=== PATIENT | female | born 1985 | race Caucasian/White ===

== ENCOUNTER 2018-05-18 03:25 | Emergency (ER) | payer BC, MEDICAID ==
--- NOTE | 2018-05-18 03:37 | ED Physician Documentation ---
PD HPI URI - Stated complaint Stated Complaint: FEVER,COUGH - Chief complaint Chief Complaint: Resp - History obtained from History obtained from: Patient - History of Present Illness Timing - onset: How many weeks ago (1) Timing details: Gradual onset Associated symptoms: Fever (Tmax 101.7) Improves by: Nothing Similar symptoms before: Has not had sx before Recently seen: Not recently seen - Additional information Additional information: patient complains of nonproductive cough for one week, generalized body aches, generalized headache. Fevers began two days ago, Tmax 101.7. Also complains of mild sore throat. Review of Systems Constitutional: reports: Fever, Chills, Myalgias, Fatigue, Sweats Ears: denies: Ear pain Throat: reports: Sore throat Cardiac: reports: Reviewed and negative Respiratory: reports: Cough. denies: Dyspnea GI: reports: Reviewed and negative Neurologic: reports: Headache PD PAST MEDICAL HISTORY - Past Medical History Past Medical History: Yes Cardiovascular: None Respiratory: None Endocrine/Autoimmune: None GI: None : Kidney stones HEENT: None Psych: None Musculoskeletal: None Derm: None - Past Surgical History Past Surgical History: Yes Ortho: Arthroscopic surgery /[employer]: section - Present Medications Home Medications: Ambulatory Orders Medication Instructions Recorded Confirmed Pnv95/Ferrous Fumarate/FA 1 each PO DAILY 12/18/12 04/20/14 [ Tablet] Oseltamivir [Tamiflu] 75 mg PO BID #9 capsule 05/18/18 Topiramate [Topamax] 1 tab PO DAILY 05/18/18 05/18/18 guaiFENesin/CODEINE [Robitussin AC] 5 - 10 ml PO Q6H PRN #100 udc 05/18/18 - Allergies Allergies/Adverse Reactions: Allergies Allergy/AdvReac Type Severity Reaction Status Date / Time amoxicillin [Amoxicillin] AdvReac Intermediate abd pain Verified 05/18/18 03:31 - Social History Does the pt smoke?: No Smoking Status: Never smoker Does the pt drink ETOH?: No Does the pt have substance abuse?: No - Immunizations Immunizations are current?: Yes Immunizations: TDAP >10years/unknown - POLST Patient has POLST: No PD ED PE NORMAL - Vitals Vital signs reviewed: Yes - General General: Alert and oriented X 3, No acute distress, Well developed/nourished - HEENT HEENT: Moist mucous membranes, Pharynx benign - Neck Neck: Supple, no meningeal sign - Cardiac Cardiac: RRR, No murmur - Respiratory Respiratory: No respiratory distress, Clear bilaterally - Abdomen Abdomen: Soft, Non tender - Derm Derm: Normal color, Warm and dry Results - Vitals Vitals: Vital Signs - 24 hr 05/18/18 05/18/18 05/18/18 03:29 05:04 05:10 Temperature 37.4 C 37.3 C Heart Rate 130 H 119 H 116 H Respiratory 20 22 Rate Blood Pressure 111/71 119/75 O2 Saturation 96 95 Oxygen O2 Source Room air - Labs Labs: Microbiology 05/18/18 04:00 Group A Strep Throat Culture - Preliminary Throat CULTURE IN PROGRESS. RESULTS TO FOLLOW. Laboratory Tests 05/18/18 05/18/18 04:00 04:00 Influenza A (Rapid) POSITIVE H Influenza B (Rapid) Negative Group A Strep Rapid Negative - Rads (name of study) chest xray Radiology: Prelim report reviewed, See rad report PD MEDICAL DECISION MAKING - ED course Complexity details: reviewed results, re-evaluated patient, considered differential, d/w patient Departure - Departure Disposition: 01 Home, Self Care Clinical Impression: Influenza Condition: Good Instructions: ED Flu, Medication: Tamiflu (Oseltamivir) Prescriptions: guaiFENesin/CODEINE [Robitussin AC] 5 - 10 ml PO Q6H PRN #100 udc PRN Reason: Cough Oseltamivir [Tamiflu] 75 mg PO BID #9 capsule Discharge Date/Time: 05/18/18 05:11
--- NOTE | 2018-05-18 04:25 | XRAY Report ---
Reason: cough, dyspnea Procedure Date: 05/18/2018 Accession Number: [id number] / [id number] Procedure: XR - Chest 2 View X-Ray CPT Code: 13133 FULL RESULT: EXAM: CHEST RADIOGRAPHY EXAM DATE: 05/18/2018 04:18 AM. CLINICAL HISTORY: Cough, dyspnea. Fever. COMPARISON: 05/05/2010 10:47 AM. TECHNIQUE: 2 views. FINDINGS: Lungs/Pleura: No alveolar consolidation or pleural effusion seen. No pneumothorax. Mediastinum: Heart and mediastinal contours are unremarkable. Other: None. IMPRESSION: 1. No acute abnormality seen in the chest. RADIA
[2018-05-18] MEDS ORDERED: OSELTAMIVIR 75 MG CAPSULE PO STA (04:59)
[2018-05-18 05:04] VITALS: BP 119/75
== END 2018-05-18 05:11 | disposition home or self-care (01) ==
LOC: ED 03:25
DX: J11.1 Influenza due to unidentified influenza virus with other respiratory manifestations (principal)
CPT/HCPCS: 71046; 87070; 87275; 87276; 87430; 99283; A9270

== ENCOUNTER 2018-08-08 18:27 | Emergency (ER) | payer MEDICAID ==
[2018-08-08 18:34] VITALS: BP 142/87
--- NOTE | 2018-08-08 19:15 | XRAY Report ---
Reason: cough Procedure Date: 08/08/2018 Accession Number: [id number] / [id number] Procedure: XR - Chest 2 View X-Ray CPT Code: 73326 FULL RESULT: EXAM: CHEST RADIOGRAPHY EXAM DATE: 08/08/2018 06:53 PM. CLINICAL HISTORY: Cough. COMPARISON: CHEST 2 VIEW 05/18/2018 4:09 AM. TECHNIQUE: 2 views. FINDINGS: Lungs/Pleura: Mild interstitial prominence with peribronchial cuffing, new or increased since previous study. No localized infiltrate, consolidation, effusion, or pneumothorax. Mediastinum: Heart and mediastinal contours are unremarkable. Other: None. IMPRESSION: Interstitial prominence, most likely bronchitis. RADIA
--- NOTE | 2018-08-08 19:22 | ED Physician Documentation ---
PD HPI URI - Stated complaint Stated Complaint: COUGH - Chief complaint Chief Complaint: Resp - History obtained from History obtained from: Patient - History of Present Illness Timing - onset: How many weeks ago (1) Timing duration: Weeks (1) Timing details: Gradual onset Pain level max: 6 Pain level now: 5 Associated symptoms: Fever (subjective), Chills, Nasal congestion, Rhinorrhea, Productive cough (green). No: Sinus pain, Sore throat Contributing factors: No: Sick contact, Travel, Immunocompromised, Unimmunized, COPD / asthma Improves by: Rest Worsened by: Activity Recently seen: Not recently seen PD PAST MEDICAL HISTORY - Past Medical History Cardiovascular: None Respiratory: None Endocrine/Autoimmune: None GI: None : Kidney stones HEENT: None Psych: None Musculoskeletal: None Derm: None - Past Surgical History Past Surgical History: Yes Ortho: Arthroscopic surgery /[employer]: section - Present Medications Home Medications: Ambulatory Orders Medication Instructions Recorded Confirmed Topiramate [Topamax] 1 tab PO DAILY 05/18/18 05/18/18 guaiFENesin/CODEINE [Robitussin AC] 5 - 10 ml PO Q6H PRN #100 udc 05/18/18 Benzonatate [Tessalon Perle] 100 - 200 mg PO TID PRN #30 capsule 08/08/18 Cetirizine HCl/Pseudoephedrine 1 each PO BID PRN #30 tab.er.12h 08/08/18 [Zyrtec-D Tablet] - Allergies Allergies/Adverse Reactions: Allergies Allergy/AdvReac Type Severity Reaction Status Date / Time amoxicillin [Amoxicillin] AdvReac Intermediate abd pain Verified 08/08/18 18:33 - Social History Does the pt smoke?: No Smoking Status: Never smoker Does the pt drink ETOH?: No Does the pt have substance abuse?: No - Immunizations Immunizations are current?: Yes Immunizations: TDAP >10years/unknown - POLST Patient has POLST: No Results - Vitals Vitals: Vital Signs - 24 hr 08/08/18 18:30 Temperature 36.5 C Heart Rate 87 Respiratory 18 Rate Blood Pressure 142/87 H O2 Saturation 97 Oxygen O2 Source Room air - Rads (name of study) cxr Radiology: Prelim report reviewed, EMP read contemporaneously, See rad report (Interstitial prominence, most likely bronchitis. ) PD MEDICAL DECISION MAKING - ED course Complexity details: reviewed results, re-evaluated patient, considered differential, d/w patient ED course: 33-year-old female presents to the emergency room with what appears to be a viral upper respiratory infection. She is well-appearing, nontoxic. Afebrile. No hypoxia. We will continue supportive care and follow-up with her doctor. No pneumonia on chest x-ray. Patient counseled regarding signs and symptoms for which I believe and urgent re-evaluation would be necessary. Patient with good understanding of and agreement to plan and is comfortable going home at this time This document was made in part using voice recognition software. While efforts are made to proofread this document, sound alike and grammatical errors may occur. Departure - Departure Disposition: 01 Home, Self Care Clinical Impression: Viral URI with cough Condition: Good Instructions: ED URI Viral Follow-Up: LATRELL SANCHEZ ARNP [Primary Care Provider] - Within 1 week Prescriptions: Benzonatate [Tessalon Perle] 100 - 200 mg PO TID PRN #30 capsule PRN Reason: Cough Cetirizine HCl/Pseudoephedrine [Zyrtec-D Tablet] 1 each PO BID PRN #30 tab.er.12h PRN Reason: nasal congestion Comments: Your xray does not show any pneumonia today. Return if you worsen. Discharge Date/Time: 08/08/18 19:41
[2018-08-08] MEDS ORDERED: PSEUDOEPHEDRINE 30 MG TABLET PO STA (19:27)
[2018-08-08] MEDS ORDERED: BENZONATATE 100 MG CAPSULE PO STA (19:27)
== END 2018-08-08 19:41 | disposition home or self-care (01) ==
LOC: ED 18:27
DX: J06.9 Acute upper respiratory infection, unspecified (principal)
CPT/HCPCS: 71046; 99281; 99283; A9270

== ENCOUNTER 2018-11-23 07:26 | Emergency (ER) | payer MEDICAID ==
[2018-11-23] MEDS ORDERED: BUPIVACAINE 0.5%-EPI 1:200000 PF 30 ML VIAL SUBQ ONE (08:18)
--- NOTE | 2018-11-23 08:37 | ED Physician Documentation ---
PD HPI HEENT - Stated complaint Stated Complaint: TOOTH PX - Chief complaint Chief Complaint: Heent - History obtained from History obtained from: Patient - History of Present Illness Timing - onset: How many years ago (1) Timing - duration: Years (1) Timing - details: Gradual onset Severity Comments: moderate, left lower tooth pain after cracking it while eating Location: Tooth Improves: Nothing Worsens: Other (chewing) Associated symptoms: No: Fever, Trismus, Unable to swallow, Swollen nodes, Facial swelling Similar symptoms before: Diagnosis (cracked tooth) Recently seen: Other (has seen a dentist but reports she cannot afford to get it fixed) - Treatment prior to arrival Treatment prior to arrival: ibuprofen and tylenol Review of Systems Ten Systems: 10 systems reviewed and negative Constitutional: denies: Fever Eyes: reports: Reviewed and negative Throat: reports: Dental pain / toothache. denies: Sore throat Cardiac: reports: Reviewed and negative Respiratory: reports: Reviewed and negative GI: denies: Nausea, Vomiting Skin: reports: Reviewed and negative Neurologic: reports: Reviewed and negative Immunocompromised: reports: Reviewed and negative PD PAST MEDICAL HISTORY - Past Medical History Cardiovascular: None Respiratory: None Endocrine/Autoimmune: None GI: None : Kidney stones HEENT: None Psych: None Musculoskeletal: None Derm: None - Past Surgical History Past Surgical History: Yes Ortho: Arthroscopic surgery /[employer]: section - Present Medications Home Medications: Ambulatory Orders Medication Instructions Recorded Confirmed Topiramate [Topamax] 1 tab PO DAILY 05/18/18 05/18/18 guaiFENesin/CODEINE [Robitussin AC] 5 - 10 ml PO Q6H PRN #100 udc 05/18/18 Benzonatate [Tessalon Perle] 100 - 200 mg PO TID PRN #30 capsule 08/08/18 Cetirizine HCl/Pseudoephedrine 1 each PO BID PRN #30 tab.er.12h 08/08/18 [Zyrtec-D Tablet] - Allergies Allergies/Adverse Reactions: Allergies Allergy/AdvReac Type Severity Reaction Status Date / Time amoxicillin [Amoxicillin] AdvReac Intermediate abd pain Verified 11/23/18 07:35 - Social History Does the pt smoke?: No Smoking Status: Never smoker Does the pt drink ETOH?: No Does the pt have substance abuse?: No - Immunizations Immunizations are current?: Yes Immunizations: TDAP >10years/unknown - POLST Patient has POLST: No PD ED PE NORMAL - Vitals Vital signs reviewed: Yes - General General: Alert and oriented X 3, No acute distress, Well developed/nourished - HEENT HEENT: Atraumatic, Moist mucous membranes, Pharynx benign - Neck Neck: Supple, no meningeal sign, No JVD, Other (no neck swelling ) - Cardiac Cardiac: RRR - Respiratory Respiratory: No respiratory distress - Abdomen Abdomen: Non distended - Female Female : Deferred - Rectal Rectal: Deferred - Derm Derm: Normal color, Warm and dry, No rash - Neuro Neuro: Alert and oriented X 3 Eye Opening: Spontaneous Motor: Obeys Commands Verbal: Oriented GCS Score: 15 - Psych Psych: Normal mood, Normal affect PD ED PE EXPANDED - HEENT HEENT: Atraumatic, Other (cracked tooth at #20, without swelling or redness or discharge. ) Results - Vitals Vitals: Vital Signs - 24 hr 11/23/18 07:33 Temperature 36.5 C Heart Rate 76 Respiratory 16 Rate Blood Pressure 139/85 H O2 Saturation 98 Oxygen O2 Source Room air Procedures - Regional nerve block Nerve block site: Other (apical dental block) Right / left: Left (tooth #20) Nerve block anesthesia: Marcaine 0.5% Nerve block aftercare: Moderate Anesthesia, Patient tolerated well, No complications PD MEDICAL DECISION MAKING - ED course Complexity details: re-evaluated patient, considered differential, d/w patient ED course: ddx- cracked tooth, dental pain, dental caries, dental infection, pulpitis, periocoronitis 33 y/o F with pain from a cracked tooth without signs or symptoms of infection or airway compromise. This is ongoing for a year without significant change. She has seen a dentist and needs an extraction but reportedly cannot afford it. Performed a dental block with her verbal consent here -discussed risk of bleeding, lack of anesthesia with the pt and she understands. Injected about 5cc of 0.5% bupivcaine with epi apically inferior to tooth #20. No complications. Pt is stable for outpt f/u Departure - Departure Disposition: 01 Home, Self Care Clinical Impression: Cracked tooth Condition: Stable Record reviewed to determine appropriate education?: Yes Instructions: ED Tooth Pain Follow-Up: your, dentist [Other] Comments: You were given anesthetic called bupivacaine for your tooth pain today. There is no sign of infection at this time but you should follow up with your dentist to extract the tooth. Return to the ED if you develop fever or significant facial swelling or difficulty breathing or swallowing. Otherwise you can take tylenol and ibuprofen for pain.
[2018-11-23 08:59] VITALS: BP 132/84
== END 2018-11-23 08:52 | disposition home or self-care (01) ==
LOC: ED 07:26
DX: K03.81 Cracked tooth (principal); K08.89 Other specified disorders of teeth and supporting structures
CPT/HCPCS: 64400

== ENCOUNTER 2020-03-01 17:33 | Outpatient (CLI) | payer MEDICAID | END 2020-03-01 17:34 | disposition home or self-care (01) | LOC: COV 17:33 | PROVIDERS: ATTEND Family Medicine | DX: Z20.822 Contact with and (suspected) exposure to COVID-19 (principal) ==